=== PATIENT | female | born 1940 ===

== ENCOUNTER 2017-12-01 12:06 | Inpatient (IN) | payer MEDICAID, OTHER ==
--- NOTE | 2017-12-01 12:20 | ED PDOC ---
HPI: SOB/CHF/COPD Time Seen by Provider: 12/01/17 12:18 Chief Complaint (Nursing): Shortness Of Breath Chief Complaint (Provider): SOB History Per: Patient Additional Complaint(s): A 76 year old female, whose past medical history includes Pulmonary Fibrosis, hypertension, diabetes and hypothyroidism, is brought into the emergency department by family complaining of SOB and dry cough since June. 2 Duoneb treatments and 1 Atrovent tx given en route to hospital. Past Medical History Reviewed: Historical Data, Nursing Documentation, Vital Signs Vital Signs: Last Vital Signs Temp 99.3 F 12/01/17 16:00 Pulse 88 12/01/17 16:00 Resp 18 12/01/17 16:00 BP 123/66 12/01/17 16:00 Pulse Ox 100 12/01/17 16:00 - Medical History PMH: Depression, HTN, Hypothyroidism Other PMH: pulmonary fibrosis - Surgical History Surgical History: Cholecystectomy, Coronary Stent - Family History Family History: States: Unknown Family Hx - Living Arrangements Living Arrangements: With Family - Social History Current smoker - smoking cessation education provided: No Alcohol: None Drugs: Denies - Home Medications Home Medications: Ambulatory Orders Medication Instructions Recorded Albuterol HFA [Ventolin HFA 90 2 puff NEB Q6 PRN 02/05/17 mcg/actuation (8 g)] Insulin Glargine, Recombina 60 units SC DAILY 02/05/17 [Lantus] amLODIPine [Norvasc] 5 mg PO DAILY 02/05/17 Levothyroxine [Synthroid] 75 mcg PO DAILY #30 tab 02/06/17 Insulin Glulisine [Apidra] 12 unit SQ DAILY 12/01/17 - Allergies Allergies/Adverse Reactions: Allergies Allergy/AdvReac Type Severity Reaction Status Date / Time Penicillins Allergy SWELLING Verified 02/05/17 13:01 Review of Systems ROS Statement: Except As Marked, All Systems Reviewed And Found Negative Cardiovascular: Positive for: Chest Pain Respiratory: Positive for: Shortness of Breath Physical Exam - Reviewed Nursing Documentation Reviewed: Yes Vital Signs Reviewed: Yes - Physical Exam Appears: Positive for: Well, Non-toxic, No Acute Distress Head Exam: Positive for: ATRAUMATIC, NORMAL INSPECTION, NORMOCEPHALIC Skin: Positive for: Normal Color, Warm, DRY Eye Exam: Positive for: EOMI, Normal appearance, PERRL ENT: Positive for: Normal ENT Inspection Neck: Positive for: Normal, Painless ROM Cardiovascular/Chest: Positive for: Regular Rate, Rhythm Respiratory: Positive for: Decreased Breath Sounds. Negative for: Accessory Muscle Use, Crackles, Rales, Rhonchi Gastrointestinal/Abdominal: Positive for: Normal Exam, Bowel Sounds, Soft Back: Positive for: Normal Inspection Extremity: Positive for: Normal ROM Neurologic/Psych: Positive for: Alert, Oriented - Laboratory Results Result Diagrams: 12/01/17 12:51 12/01/17 12:51 - ECG O2 Sat by Pulse Oximetry: 99 Medical Decision Making Medical Decision Making: Pt placed on pressure welder. Non re-breather mask in place and Pt at 100% IV access established and diagnostics ordered CXR: (+) Poor inspiratory effort, increased hilar markings, as read by PA-C Labs resulted and reviewed with ED MD, Dr. Cardoza, who agreed with admission at this time. Case discussed with hospitalist on-call, Dr. Dodge, who presented to see and evaluate Pt at bedside. arrangements made for admission Disposition - Clinical Impression Clinical Impression: Chr obstructive pulmonary disease w/ acute lower respiratory infxn - Patient ED Disposition Is Patient to be Admitted: Yes - Disposition Disposition Time: 16:24 Condition: STABLE
[2017-12-01 12:58] LABS: BASO # 0.1 K/uL (0.0-0.2); BASO % 1.2 % (0.0-2.0); EOS # 0.2 K/uL (0.0-0.7); EOS % 2.2 % (0.0-4.0); HEMOGLOBIN 12.5 g/dL (12.0-16.0); LYMPH # 2.3 K/uL (1.0-4.3); LYMPH % 22.2 % (20.0-40.0); MEAN CELL VOLUME 92.5 fl (81.0-99.0); MEAN CORPUSCULAR HGB CONC 32.5 g/dL (33.0-37.0); MEAN PLATELET VOLUME 8.8 fl (7.2-11.7); MONO # 0.6 K/uL (0.0-0.8); MONO % 5.4 % (0.0-10.0); NEUT # 7.3 K/uL (1.8-7.0); RBC 4.17 Mil/uL (3.80-5.20); RED CELL DISTRIBUTION WIDTH 14.8 % (11.5-14.5); WHITE BLOOD COUNT 10.5 K/uL (4.8-10.8)
[2017-12-01 13:16] LABS: GFR AFRICAN-AMERICAN > 60; GFR NON-AFRICAN AMERICAN > 60
[2017-12-01 13:17] LABS: INR 1.1 (0.9-1.2)
[2017-12-01 13:26] LABS: SQUAMOUS EPITHIAL 1 /hpf (0-5); URINE BACTERIA MANY (<OCC); URINE BILIRUBIN NEGATIVE (NEGATIVE); URINE BLOOD SMALL (NEGATIVE); URINE CLARITY CLOUDY (Clear); URINE COLOR YELLOW (YELLOW); URINE GLUCOSE (UA) NEG (Normal); URINE LEUKOCYTE ESTERASE LARGE Leu/uL (Negative); URINE NITRATE NEGATIVE (NEGATIVE); URINE PROTEIN NEGATIVE (NEGATIVE); URINE UROBILINOGEN 0.2-1.0 mg/dL (0.2-1.0)
[2017-12-01 13:27] LABS: B-TYPE NATRIURETIC PEPTIDE 272 pg/ml (0-900)
[2017-12-01 13:28] LABS: PARTIAL THROMBOPLASTIN TIME 24.7 Seconds (25.6-37.1)
[2017-12-01 13:32] LABS: ALB/GLOB RATIO 0.8 (1.0-2.1); ALT/SGPT 22 U/L (9-52); AST/SGOT 33 U/L (14-36); BLOOD UREA NITROGEN 18 mg/dl (7-17)
[2017-12-01] MEDS ORDERED: Iodixanol 320 MG/ML 100 ML BOTTLE IV ONE (14:18)
[2017-12-01] MEDS ORDERED: Sodium Chloride 0.9% 50 ML IV ONE (14:18)
--- NOTE | 2017-12-01 14:24 | RAD ---
PROCEDURE: CHEST RADIOGRAPH, 1 VIEW HISTORY: SOB COMPARISON: None available. FINDINGS: LUNGS: Low lung volumes. Prominence of the bilateral interstitial markings with suggestion of fibrotic changes. PLEURA: No pneumothorax or pleural fluid seen. CARDIOVASCULAR: Normal. OSSEOUS STRUCTURES: Degenerative changes. VISUALIZED UPPER ABDOMEN: Normal. OTHER FINDINGS: None. IMPRESSION: Prominence of the bilateral interstitial markings with suggestion of fibrotic changes.
[2017-12-01] MEDS ORDERED: Albuterol-Ipratrop 3 mg / 0.5 (3 ml) UD INH PRN (14:56)
--- NOTE | 2017-12-01 14:57 | CP.PCM.HP ---
History of Present Illness - History of Present Illness History of Present Illness: CC: shortness of breath HPI: 76 year old female, whose past medical history Pulmonary Fibrosis diagnosed in [facility], hypertension, diabetes and hypothyroidism, hx of chemo 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 Patient states she has orthopnea, has some wheezing and coarse breath sounds. Patient received bronchodilators in the ER and felt slightly improved. Patient also lived with her brother who is a heavy smoker for many years, although she has not smoked herself. CT showed bronchiectasis as well as pulmonary fibrosis. We will observe patient for dyspnea, and treat with steroids and bronchodilators. ROS: Per HPI, all other systems reviewed and neg PMH: denies PSH: denies FH: denies SH: denies tobacco, ETOH, IVDU NKDA Vitals Reviewed GEN: WDWN, ALERT, COOPERATIVE HEENT: NCAT, PERRL, EOMI HEART: RRR, +S1S2, NO MRG LUNG: diminished breath sounds bilaterally ABD: SOFT, NT, ND, NO HSM, NO MASSES EXT: NORMAL PEDAL PULSES, GOOD CAPILLARY REFILL NEURO: AAOX3, STRENGTH EQUAL BILATERAL UPPER AND LOWER EXTREMITIES SKIN: WARM, DRY PSYCH: NORMAL MOOD, NORMAL AFFECT LABS Most Recent Lab Values WBC 10.5 K/uL (4.8-10.8) 12/01/17 12:51 RBC 4.17 Mil/uL (3.80-5.20) 12/01/17 12:51 Hgb 12.5 g/dL (12.0-16.0) 12/01/17 12:51 Hct 38.6 % (34.0-47.0) 12/01/17 12:51 MCV 92.5 fl (81.0-99.0) 12/01/17 12:51 MCH 30.0 pg (27.0-31.0) 12/01/17 12:51 MCHC 32.5 g/dL (33.0-37.0) L 12/01/17 12:51 RDW 14.8 % (11.5-14.5) H 12/01/17 12:51 Plt Count 252 K/uL (130-400) 12/01/17 12:51 MPV 8.8 fl (7.2-11.7) 12/01/17 12:51 Neut % (Auto) 69.0 % (50.0-75.0) 12/01/17 12:51 Lymph % (Auto) 22.2 % (20.0-40.0) 12/01/17 12:51 [place] % (Auto) 5.4 % (0.0-10.0) 12/01/17 12:51 Eos % (Auto) 2.2 % (0.0-4.0) 12/01/17 12:51 Baso % (Auto) 1.2 % (0.0-2.0) 12/01/17 12:51 Neut # 7.3 K/uL (1.8-7.0) H 12/01/17 12:51 Lymph # 2.3 K/uL (1.0-4.3) 12/01/17 12:51 [place] # 0.6 K/uL (0.0-0.8) 12/01/17 12:51 Eos # 0.2 K/uL (0.0-0.7) 12/01/17 12:51 Baso # 0.1 K/uL (0.0-0.2) 12/01/17 12:51 PT 12.0 Seconds (9.8-13.1) 12/01/17 12:51 INR 1.1 (0.9-1.2) 12/01/17 12:51 APTT 24.7 Seconds (25.6-37.1) L 12/01/17 12:51 Sodium 140 mmol/l (132-148) 12/01/17 12:51 Potassium 4.8 MMOL/L (3.6-5.0) 12/01/17 12:51 Chloride 99 mmol/L (98-107) 12/01/17 12:51 Carbon Dioxide 27 mmol/L (22-30) 12/01/17 12:51 Anion Gap 19 (10-20) 12/01/17 12:51 BUN 18 mg/dl (7-17) H 12/01/17 12:51 Creatinine 0.6 mg/dl (0.7-1.2) L 12/01/17 12:51 Est GFR ( Amer) > 60 12/01/17 12:51 Est GFR (Non-Af Amer) > 60 12/01/17 12:51 POC Glucose (mg/dL) 257 mg/dL (65-110) H 12/01/17 15:01 Random Glucose 269 mg/dL (65-105) H 12/01/17 12:51 Calcium 10.0 mg/dL (8.4-10.2) 12/01/17 12:51 Total Bilirubin 0.8 mg/dl (0.2-1.3) 12/01/17 12:51 AST 33 U/L (14-36) 12/01/17 12:51 ALT 22 U/L (9-52) 12/01/17 12:51 Alkaline Phosphatase 114 U/L (38-126) 12/01/17 12:51 Troponin I < 0.0120 ng/mL (0.00-0.120) 12/01/17 12:51 NT-Pro-B Natriuret Pep 272 pg/ml (0-900) 12/01/17 12:51 Total Protein 9.3 G/DL (6.3-8.2) H 12/01/17 12:51 Albumin 4.0 g/dL (3.5-5.0) 12/01/17 12:51 Globulin 5.3 gm/dL (2.2-3.9) H 12/01/17 12:51 Albumin/Globulin Ratio 0.8 (1.0-2.1) L 12/01/17 12:51 Urine Color Yellow (YELLOW) 12/01/17 13:15 Urine Clarity Cloudy (Clear) 12/01/17 13:15 Urine pH 5.0 (5.0-8.0) 12/01/17 13:15 Ur Specific [place] 1.011 (1.003-1.030) 12/01/17 13:15 Urine Protein Negative mg/dL (NEGATIVE) 12/01/17 13:15 Urine Glucose (UA) Neg mg/dL (Normal) 12/01/17 13:15 Urine Ketones Negative mg/dL (NEGATIVE) 12/01/17 13:15 Urine Blood Small (NEGATIVE) 12/01/17 13:15 Urine Nitrate Negative (NEGATIVE) 12/01/17 13:15 Urine Bilirubin Negative (NEGATIVE) 12/01/17 13:15 Urine Urobilinogen 0.2-1.0 mg/dL (0.2-1.0) 12/01/17 13:15 Ur Leukocyte Esterase Large Willian/uL (Negative) 12/01/17 13:15 Urine RBC (Auto) 3 /hpf (0-3) 12/01/17 13:15 Urine Microscopic WBC 82 /hpf (0-5) H 12/01/17 13:15 Ur Squamous Epith Cells 1 /hpf (0-5) 12/01/17 13:15 Urine Bacteria Many (<OCC) H 12/01/17 13:[address] CHEST: bronchiectasis and pulmonary fibrosis ASSESSMENT AND PLAN 76 year old female, whose past medical history Pulmonary Fibrosis diagnosed in [facility], hypertension, diabetes and hypothyroidism, hx of chemo 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 Patient states she has orthopnea, has some wheezing and coarse breath sounds. Patient received bronchodilators in the ER and felt slightly improved. Patient also lived with her brother who is a heavy smoker for many years, although she has not smoked herself. CT showed bronchiectasis as well as pulmonary fibrosis. We will observe patient for dyspnea, and treat with steroids and bronchodilators. Pulmonary Fibrosis, Bronchiectasis Dypsnea On 2L NC and saturating well if patient desaturates overnight will place on ventimask which she tolerated well in ER Albuterol/Ipratropium [Duoneb 3 mg/0.5 mg (3 ml) UD] 3 ml INH RQ2 PRN Albuterol/Ipratropium [Duoneb 3 mg/0.5 mg (3 ml) UD] 3 ml INH RQID methylPREDNISolone [SOLU-Medrol] 60 mg IVP Q8H Hypothyroid Levothyroxine [Synthroid] 75 mcg PO DAILY@0630 DM Insulin Detemir [Levemir] 60 units SC DAILY ACCUCHECKS ISS HTN amLODIPine [Norvasc] 5 mg PO DAILY Present on Admission - Present on Admission Any Indicators Present on Admission: No Past Patient History - Past Social History Smoking Status: Never Smoked - CARDIAC Hx Hypertension: Yes - PULMONARY Other/Comment: cystic fibrosis - NEUROLOGICAL Hx Dizziness: Yes (Vertigo) - ENDOCRINE/METABOLIC Hx Hypothyroidism: Yes - MUSCULOSKELETAL/RHEUMATOLOGICAL Hx Falls: No - GASTROINTESTINAL Hx Gastrointestinal Disorders: Yes - PSYCHIATRIC Hx Depression: Yes - SURGICAL HISTORY Hx Cholecystectomy: Yes Hx Coronary Stent: Yes - ANESTHESIA Hx Anesthesia: Yes Hx Anesthesia Reactions: No Meds Allergies/Adverse Reactions: Allergies Allergy/AdvReac Type Severity Reaction Status Date / Time Penicillins Allergy SWELLING Verified 02/05/17 13:01 Results - Vital Signs Recent Vital Signs: Last Vital Signs Temp 98.8 F 12/01/17 12:09 Pulse 103 H 12/01/17 12:09 Resp 18 12/01/17 12:09 BP 134/72 12/01/17 12:09 Pulse Ox 99 12/01/17 12:35 - Labs Result Diagrams: 12/01/17 12:51 12/01/17 12:51 Labs: Laboratory Results - last 24 hr 12/01/17 12/01/17 12/01/17 12:51 12:51 12:51 WBC 10.5 RBC 4.17 Hgb 12.5 Hct 38.6 MCV 92.5 MCH 30.0 MCHC 32.5 L RDW 14.8 H Plt Count 252 MPV 8.8 Neut % (Auto) 69.0 Lymph % (Auto) 22.2 [place] % (Auto) 5.4 Eos % (Auto) 2.2 Baso % (Auto) 1.2 Neut # 7.3 H Lymph # 2.3 [place] # 0.6 Eos # 0.2 Baso # 0.1 PT 12.0 INR 1.1 APTT 24.7 L Sodium 140 Potassium 4.8 Chloride 99 Carbon Dioxide 27 Anion Gap 19 BUN 18 H Creatinine 0.6 L Est GFR ( Amer) > 60 Est GFR (Non-Af Amer) > 60 Random Glucose 269 H Calcium 10.0 Total Bilirubin 0.8 AST 33 ALT 22 Alkaline Phosphatase 114 Troponin I < 0.0120 NT-Pro-B Natriuret Pep 272 Total Protein 9.3 H Albumin 4.0 Globulin 5.3 H Albumin/Globulin Ratio 0.8 L Urine Color Urine Clarity Urine pH Ur Specific [place] Urine Protein Urine Glucose (UA) Urine Ketones Urine Blood Urine Nitrate Urine Bilirubin Urine Urobilinogen Ur Leukocyte Esterase Urine RBC (Auto) Urine Microscopic WBC Ur Squamous Epith Cells Urine Bacteria 12/01/17 13:15 WBC RBC Hgb Hct MCV MCH MCHC RDW Plt Count MPV Neut % (Auto) Lymph % (Auto) [place] % (Auto) Eos % (Auto) Baso % (Auto) Neut # Lymph # [place] # Eos # Baso # PT INR APTT Sodium Potassium Chloride Carbon Dioxide Anion Gap BUN Creatinine Est GFR ( Amer) Est GFR (Non-Af Amer) Random Glucose Calcium Total Bilirubin AST ALT Alkaline Phosphatase Troponin I NT-Pro-B Natriuret Pep Total Protein Albumin Globulin Albumin/Globulin Ratio Urine Color Yellow Urine Clarity Cloudy Urine pH 5.0 Ur Specific [place] 1.011 Urine Protein Negative Urine Glucose (UA) Neg Urine Ketones Negative Urine Blood Small Urine Nitrate Negative Urine Bilirubin Negative Urine Urobilinogen 0.2-1.0 Ur Leukocyte Esterase Large Urine RBC (Auto) 3 Urine Microscopic WBC 82 H Ur Squamous Epith Cells 1 Urine Bacteria Many H
[2017-12-01] MEDS: Albuterol-Ipratrop 3 mg / 0.5 (3 ml) UD INH SCH ×2 (16:00→20:18)
--- NOTE | 2017-12-01 16:46 | CT ---
PROCEDURE: CT Chest with contrast (Pulmonary Angiogram) HISTORY: abnormal cxr, SOB, CP COMPARISON: None available. TECHNIQUE: Axial computed tomography images were obtained of the chest in the pulmonary arterial phase of enhancement. Coronal and sagittal reformatted images were created and reviewed. Intravenous contrast dose: 90 mL Visipaque 320 Radiation dose: Total exam DLP = 341.8 mGy-cm. This CT exam was performed using one or more of the following dose reduction techniques: Automated exposure control, adjustment of the mA and/or kV according to patient size, and/or use of iterative reconstruction technique. FINDINGS: PULMONARY ARTERIES: Unremarkable. No pulmonary embolism. AORTA: No acute findings. No thoracic aortic aneurysm. LUNGS: Low lung volumes. Diffuse bronchiectasis and fibrotic changes, right lung worse than left. Limited evaluation, but no gross nodule, mass or pulmonary consolidation. PLEURAL SPACES: Unremarkable. No effusion or pneumothorax. HEART: Cardiomegaly. No significant pericardial effusion. LYMPH NODES: Prominent right hilar lymph nodes. No lymphadenopathy. BONES, CHEST WALL: Unremarkable. No fracture or destructive lesion OTHER FINDINGS: Unremarkable. IMPRESSION: Unremarkable CT pulmonary angiogram. No pulmonary embolus. Low lung volumes. Diffuse bronchiectasis and fibrotic changes, right lung worse than left.
[2017-12-01 17:40] VITALS: BMI 21.8
[2017-12-01] MEDS ORDERED: Pneumococcal 23-Valent Vaccine IM ONE (20:00)
[2017-12-01] MEDS ORDERED: Influenza Vaccine 18yr & older 0.5 ML/45 MCG SYR IM ONE (20:00)
[2017-12-01] MEDS: Nasal Spray(Ocean spray) NAS PRN (20:41)
[2017-12-01] MEDS: Insulin Lispro (humaLOG) 100 Units/ml Inj SC SCH (22:27)
[2017-12-02] MEDS: guaiFENesin 200 mg/10 ml Syrup UD PO PRN ×3 (05:03→23:13)
[2017-12-02 05:33] LABS: HEMOGLOBIN 12.2 g/dL (12.0-16.0); MEAN CELL VOLUME 92.2 fl (81.0-99.0); MEAN CORPUSCULAR HEMOGLOBIN 30.3 pg (27.0-31.0); MEAN CORPUSCULAR HGB CONC 32.9 g/dL (33.0-37.0); RBC 4.03 Mil/uL (3.80-5.20); RED CELL DISTRIBUTION WIDTH 14.6 % (11.5-14.5); WHITE BLOOD COUNT 8.9 K/uL (4.8-10.8)
[2017-12-02 06:01] LABS: BLOOD UREA NITROGEN 20 mg/dl (7-17); CALCIUM 9.7 mg/dL (8.4-10.2); GFR AFRICAN-AMERICAN > 60; GFR NON-AFRICAN AMERICAN > 60
[2017-12-02] MEDS: Levothyroxine 75 MCG TAB PO SCH (06:04)
[2017-12-02] MEDS: Insulin Lispro (humaLOG) 100 Units/ml Inj SC SCH ×4 (06:44→21:30)
[2017-12-02] MEDS: Albuterol-Ipratrop 3 mg / 0.5 (3 ml) UD INH SCH ×4 (07:35→19:04)
[2017-12-02] MEDS: Insulin Detemir 100 Units/ml Inj SC SCH (08:15)
[2017-12-02] MEDS: Enoxaparin 40 mg Syringe SC SCH (08:16)
[2017-12-02] MEDS: Nasal Spray(Ocean spray) NAS PRN (08:17)
[2017-12-02] MEDS ORDERED: Enoxaparin 40 mg Syringe SC SCH (09:00)
--- NOTE | 2017-12-02 11:03 | CP.PCM.PN ---
Subjective - Date & Time of Evaluation Date of Evaluation: 12/02/17 Time of Evaluation: 11:03 - Subjective Subjective: pt continues to be dyspneic with increased work of breathing at rest, saturating appx 88% on 2L NC. will need to set up home O2, obtaining ECHO today. HD stable, NAD. no cp, calf tenderness Objective - Vital Signs/Intake and Output Vital Signs (last 24 hours): Temp Pulse Resp BP Pulse Ox 98.1 F 84 18 117/68 96 12/02/17 07:56 12/02/17 09:00 12/02/17 07:56 12/02/17 08:17 12/02/17 07:56 Intake and Output: 12/02/17 12/02/17 06:59 18:59 Intake Total 1110 Balance 1110 - Medications Medications: Current Medications Acetaminophen (Tylenol 325mg Tab) 650 mg PO Q6 PRN PRN Reason: Pain, moderate (4-7) Last Admin: 12/02/17 08:53 Dose: 650 mg Albuterol/Ipratropium (Duoneb 3 Mg/0.5 Mg (3 Ml) Ud) 3 ml INH RQID ARIANA Last Admin: 12/02/17 07:35 Dose: 3 ml Albuterol/Ipratropium (Duoneb 3 Mg/0.5 Mg (3 Ml) Ud) 3 ml INH RQ2 PRN PRN Reason: Shortness of Breath Amlodipine Besylate (Norvasc) 5 mg PO DAILY [facility] Last Admin: 12/02/17 08:17 Dose: 5 mg Enoxaparin Sodium (Lovenox) 40 mg SC DAILY ARIANA PRN Reason: Protocol Last Admin: 12/02/17 08:16 Dose: 40 mg Guaifenesin (Robitussin) 200 mg PO Q6 PRN PRN Reason: Cough Last Admin: 12/02/17 05:03 Dose: 200 mg Ceftriaxone Sodium 1,000 mg/ (PED IV SYRINGE) 0 mls @ 100 mls/hr IVPB DAILY ARIANA PRN Reason: Protocol Insulin Detemir (Levemir) 60 units SC DAILY [facility] Last Admin: 12/02/17 08:15 Dose: 60 units Insulin Human Lispro (Humalog) 0 units SC ACHS ARIANA PRN Reason: Protocol Last Admin: 12/02/17 06:44 Dose: 4 units Levothyroxine Sodium (Synthroid) 75 mcg PO DAILY@0630 [facility] Last Admin: 12/02/17 06:04 Dose: 75 mcg Methylprednisolone (Solu-Medrol) 60 mg IVP Q8H [facility] Last Admin: 12/02/17 04:54 Dose: 60 mg Sodium Chloride ([place] Nasal [place]) 1 sprays DILLON Q4 PRN PRN Reason: Nasal congestion Last Admin: 12/02/17 08:17 Dose: 1 spr - Labs Labs: 12/02/17 04:30 12/02/17 04:30 PT 12.0 Seconds (9.8-13.1) 12/01/17 12:51 INR 1.1 (0.9-1.2) 12/01/17 12:51 APTT 24.7 Seconds (25.6-37.1) L 12/01/17 12:51 - Constitutional Appears: Non-toxic, No Acute Distress - Head Exam Head Exam: ATRAUMATIC, NORMOCEPHALIC - Eye Exam Eye Exam: EOMI, Normal appearance, PERRL - ENT Exam ENT Exam: Mucous Membranes Moist, Normal Oropharynx - Neck Exam Neck Exam: Full ROM, Normal Inspection - Respiratory Exam Respiratory Exam: Decreased Breath Sounds, Clear to Ausculation Bilateral Additional comments: mild increased work of breathing - Cardiovascular Exam Cardiovascular Exam: RRR, +S1, +S2 - GI/Abdominal Exam GI & Abdominal Exam: Soft, Normal Bowel Sounds. absent: Tenderness, Mass, Organomegaly - Extremities Exam Extremities Exam: Full ROM, Normal Capillary Refill - Back Exam Back Exam: absent: CVA tenderness (L), CVA tenderness (R) - Neurological Exam Neurological Exam: Alert, Awake - Psychiatric Exam Psychiatric exam: Normal Affect, Normal Mood - Skin Skin Exam: Dry, Warm Assessment and Plan - Assessment and Plan (Free Text) Assessment: 76 year old female, whose past medical history Pulmonary Fibrosis diagnosed in [facility], hypertension, diabetes and hypothyroidism, hx of chemo 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 Patient states she has orthopnea, has some wheezing and coarse breath sounds. Patient received bronchodilators in the ER and felt slightly improved. Patient also lived with her brother who is a heavy smoker for many years, although she has not smoked herself. CT showed bronchiectasis as well as pulmonary fibrosis. We will observe patient for dyspnea, and treat with steroids and bronchodilators. Pulmonary Fibrosis, Bronchiectasis Dypsnea On 2L NC and saturating 88% on 2 L NC, will require home O2. echo for today to evaluate R heart function PT to evaluate patient on ambulation Albuterol/Ipratropium [Duoneb 3 mg/0.5 mg (3 ml) UD] 3 ml INH RQ2 PRN Albuterol/Ipratropium [Duoneb 3 mg/0.5 mg (3 ml) UD] 3 ml INH RQID discontinue steroids, no wheezing, no evidence of benefit per guidelines We will set up home O2 for patient, as she will require 24H home O2. Per discussion with [facility] Monthly cost at this time would be over $5000. Will discuss with Case Management tomorrow regarding other options. Hypothyroid Levothyroxine [Synthroid] 75 mcg PO DAILY@0630 DM Insulin Detemir [Levemir] 60 units SC DAILY ACCUCHECKS ISS HTN amLODIPine [Norvasc] 5 mg PO DAILY
--- NOTE | 2017-12-02 16:12 | CARD ---
APPROVED REPORT EXAM: Two-dimensional and M-mode echocardiogram with Doppler and color Doppler. Other Information Quality : FairRhythm : NSR INDICATION Dyspnea 2D DIMENSIONS LVEF (%)55.0 (>50%) Mitral Valve E/A ratio0.0 TDI E/Lateral E'0.0E/Medial E'0.0 LEFT VENTRICLE The left ventricle is normal size. There is normal left ventricular wall thickness. The left ventricular function is normal. The left ventricular ejection fraction is within the normal range. There is normal LV segmental wall motion. Transmitral Doppler flow pattern is Grade I-abnormal relaxation pattern. RIGHT VENTRICLE The right ventricle is normal size. There is normal right ventricular wall thickness. The right ventricular systolic function is normal. ATRIA The left atrium size is normal. The right atrium size is normal. AORTIC VALVE The aortic valve is mildly sclerotic. No aortic regurgitation is present. There is no aortic valvular stenosis. MITRAL VALVE The mitral valve is mildly thickened. There is no mitral valve stenosis. There is no mitral valve regurgitation noted. TRICUSPID VALVE The tricuspid valve is normal in structure. There is no tricuspid valve regurgitation noted. PULMONIC VALVE The pulmonary valve is normal in structure. There is no pulmonic valvular regurgitation. GREAT VESSELS The aortic root displays moderate sclerocalcific changes of the aortic root. The IVC was not visualized. PERICARDIAL EFFUSION The pericardium appears normal. <Conclusion> The left ventricle is normal size. There is normal left ventricular wall thickness. The left ventricular function is normal. The left ventricular ejection fraction is within the normal range. There is normal LV segmental wall motion. Transmitral Doppler flow pattern is Grade I-abnormal relaxation pattern.
[2017-12-02] MEDS ORDERED: Insulin Lispro (humaLOG) 100 Units/ml Inj SC STA ×2 (18:06→19:55)
[2017-12-03] MEDS: Levothyroxine 75 MCG TAB PO SCH (05:49)
[2017-12-03] MEDS: guaiFENesin 200 mg/10 ml Syrup UD PO PRN (05:49)
[2017-12-03] MEDS: Insulin Lispro (humaLOG) 100 Units/ml Inj SC SCH ×4 (07:00→22:34)
[2017-12-03] MEDS: Albuterol-Ipratrop 3 mg / 0.5 (3 ml) UD INH SCH ×4 (07:41→19:42)
[2017-12-03] MEDS: Enoxaparin 40 mg Syringe SC SCH (08:30)
[2017-12-03] MEDS: Insulin Detemir 100 Units/ml Inj SC SCH (08:54)
--- NOTE | 2017-12-03 11:17 | CP.PCM.PN ---
Subjective - Date & Time of Evaluation Date of Evaluation: 12/03/17 Time of Evaluation: 11:10 - Subjective Subjective: pt states she feels improved but continues to require O2 at baseline, currently saturating 91% with ambulation on 5L NC. no complaints at this time NO CP, CALFTENDERNESS HDstable, NAD Objective - Vital Signs/Intake and Output Vital Signs (last 24 hours): Temp Pulse Resp BP Pulse Ox 97.9 F 64 18 118/68 100 12/03/17 08:00 12/03/17 08:30 12/03/17 08:00 12/03/17 08:30 12/03/17 08:00 - Medications Medications: Current Medications Acetaminophen (Tylenol 325mg Tab) 650 mg PO Q6 PRN PRN Reason: Pain, moderate (4-7) Last Admin: 12/03/17 08:54 Dose: 650 mg Albuterol/Ipratropium (Duoneb 3 Mg/0.5 Mg (3 Ml) Ud) 3 ml INH RQID [facility] Last Admin: 12/03/17 07:41 Dose: 3 ml Albuterol/Ipratropium (Duoneb 3 Mg/0.5 Mg (3 Ml) Ud) 3 ml INH RQ2 PRN PRN Reason: Shortness of Breath Amlodipine Besylate (Norvasc) 5 mg PO DAILY [facility] Last Admin: 12/03/17 08:30 Dose: 5 mg Enoxaparin Sodium (Lovenox) 40 mg SC DAILY [facility] PRN Reason: Protocol Last Admin: 12/03/17 08:30 Dose: 40 mg Guaifenesin (Robitussin) 200 mg PO Q6 PRN PRN Reason: Cough Last Admin: 12/03/17 05:49 Dose: 200 mg Ceftriaxone Sodium 1 gm/ (Sodium Chloride) 100 mls @ 100 mls/hr IVPB DAILY [facility] PRN Reason: Protocol Last Admin: 12/03/17 09:39 Dose: 100 mls/hr Insulin Detemir (Levemir) 60 units SC DAILY [facility] Last Admin: 12/03/17 08:54 Dose: 60 units Insulin Human Lispro (Humalog) 0 units SC ACHS [facility] PRN Reason: Protocol Last Admin: 12/03/17 07:00 Dose: 2 units Levothyroxine Sodium (Synthroid) 75 mcg PO DAILY@0630 [facility] Last Admin: 12/03/17 05:49 Dose: 75 mcg Sodium Chloride ([place] Nasal [place]) 1 sprays [facility] Q4 PRN PRN Reason: Nasal congestion Last Admin: 12/02/17 08:17 Dose: 1 spr - Labs Labs: 12/02/17 04:30 12/02/17 04:30 PT 12.0 Seconds (9.8-13.1) 12/01/17 12:51 INR 1.1 (0.9-1.2) 12/01/17 12:51 APTT 24.7 Seconds (25.6-37.1) L 12/01/17 12:51 - Constitutional Appears: Non-toxic, No Acute Distress - Head Exam Head Exam: ATRAUMATIC, NORMOCEPHALIC - Eye Exam Eye Exam: EOMI, Normal appearance, PERRL - ENT Exam ENT Exam: Mucous Membranes Moist, Normal Oropharynx - Neck Exam Neck Exam: Full ROM, Normal Inspection - Respiratory Exam Respiratory Exam: Decreased Breath Sounds, Clear to Ausculation Bilateral, NORMAL BREATHING PATTERN. absent: Wheezes - Cardiovascular Exam Cardiovascular Exam: RRR, +S1, +S2 - GI/Abdominal Exam GI & Abdominal Exam: Soft, Normal Bowel Sounds. absent: Tenderness, Mass, Organomegaly - Extremities Exam Extremities Exam: Normal Capillary Refill. 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 Patient states she has orthopnea, has some wheezing and coarse breath sounds. Patient received bronchodilators in the ER and felt slightly improved. Patient also lived with her brother who is a heavy smoker for many years, although she has not smoked herself. CT showed bronchiectasis as well as pulmonary fibrosis. We will observe patient for dyspnea, and treat with steroids and bronchodilators. Pulmonary Fibrosis, Bronchiectasis Dypsnea On 2L NC and saturating 88% on 2 L NC, will require home O2. echo for today to evaluate R heart function PT to evaluate patient on ambulation Albuterol/Ipratropium [Duoneb 3 mg/0.5 mg (3 ml) UD] 3 ml INH RQ2 PRN Albuterol/Ipratropium [Duoneb 3 mg/0.5 mg (3 ml) UD] 3 ml INH RQID discontinue steroids, no wheezing, no evidence of benefit in pulmonary fibrosis per guidelines We will set up home O2 for patient, as she will require 24H home O2. Discussed further with patient. She admits she does have home O2 which her daughter acquired for her, but it is unclear from where. Appreciate Case Management. Hypothyroid Levothyroxine [Synthroid] 75 mcg PO DAILY@0630 DM Insulin Detemir [Levemir] 60 units SC DAILY [facility] HTN amLODIPine [Norvasc] 5 mg PO DAILY
[2017-12-04] MEDS: Levothyroxine 75 MCG TAB PO SCH (05:53)
[2017-12-04] MEDS: Insulin Lispro (humaLOG) 100 Units/ml Inj SC SCH ×4 (07:22→21:46)
[2017-12-04] MEDS: Albuterol-Ipratrop 3 mg / 0.5 (3 ml) UD INH SCH ×4 (07:29→19:58)
--- NOTE | 2017-12-04 07:55 | CARD ---
APPROVED REPORT EKG Measurement Heart [id number] <Conclusion> Sinus tachycardia Inferior infarct, age undetermined Poor R wave progression in the chest leads Abnormal ECG
[2017-12-04] MEDS: Enoxaparin 40 mg Syringe SC SCH (08:58)
[2017-12-04] MEDS: Insulin Detemir 100 Units/ml Inj SC SCH (08:58)
[2017-12-04] MEDS: guaiFENesin 200 mg/10 ml Syrup UD PO PRN (09:05)
[2017-12-04] MEDS ORDERED: Sodium Chloride 3% for Inhalation 4 ML VIAL.NEB IH PRN (10:42)
[2017-12-04] MEDS ORDERED: methylPREDNISolone 80 MG in Sodium Chloride 0.9% 50 ML IVPB SCH (10:45)
--- NOTE | 2017-12-04 12:25 | CP.PCM.PN ---
Subjective - Date & Time of Evaluation Date of Evaluation: 12/04/17 Time of Evaluation: 10:45 - Subjective Subjective: No fever still with SOB + cough, dry some chest discomfort no abd pain Objective - Vital Signs/Intake and Output Vital Signs (last 24 hours): Temp Pulse Resp BP Pulse Ox 97.8 F 83 18 112/74 100 12/04/17 09:00 12/04/17 09:00 12/04/17 09:00 12/04/17 09:00 12/04/17 09:00 - Medications Medications: Current Medications Acetaminophen (Tylenol 325mg Tab) 650 mg PO Q6 PRN PRN Reason: Pain, moderate (4-7) Last Admin: 12/04/17 09:29 Dose: 650 mg Albuterol/Ipratropium (Duoneb 3 Mg/0.5 Mg (3 Ml) Ud) 3 ml INH RQID [facility] Last Admin: 12/04/17 11:26 Dose: 3 ml Albuterol/Ipratropium (Duoneb 3 Mg/0.5 Mg (3 Ml) Ud) 3 ml INH RQ2 PRN PRN Reason: Shortness of Breath Amlodipine Besylate (Norvasc) 5 mg PO DAILY [facility] Last Admin: 12/04/17 08:59 Dose: 5 mg Enoxaparin Sodium (Lovenox) 40 mg SC DAILY [facility] PRN Reason: Protocol Last Admin: 12/04/17 08:58 Dose: 40 mg Guaifenesin (Robitussin) 200 mg PO Q6 PRN PRN Reason: Cough Last Admin: 12/04/17 09:05 Dose: 200 mg Ceftriaxone Sodium 1 gm/ (Sodium Chloride) 100 mls @ 100 mls/hr IVPB DAILY [facility] PRN Reason: Protocol Last Admin: 12/04/17 09:30 Dose: 100 mls/hr Insulin Detemir (Levemir) 60 units SC DAILY [facility] Last Admin: 12/04/17 08:58 Dose: 60 units Insulin Human Lispro (Humalog) 0 units SC ACHS [facility] PRN Reason: Protocol Last Admin: 12/04/17 07:22 Dose: Not Given Levothyroxine Sodium (Synthroid) 75 mcg PO DAILY@0630 [facility] Last Admin: 12/04/17 05:53 Dose: 75 mcg Methylprednisolone (Solu-Medrol) 80 mg IV Q8H [facility] Sodium Chloride ([place] Nasal [place]) 1 sprays DILLON Q4 PRN PRN Reason: Nasal congestion Last Admin: 12/02/17 08:17 Dose: 1 spr - Labs Labs: 12/02/17 04:30 12/02/17 04:30 PT 12.0 Seconds (9.8-13.1) 12/01/17 12:51 INR 1.1 (0.9-1.2) 12/01/17 12:51 APTT 24.7 Seconds (25.6-37.1) L 12/01/17 12:51 - Constitutional Appears: Non-toxic, Chronically Ill - Head Exam Head Exam: NORMAL INSPECTION, NORMOCEPHALIC - Eye Exam Eye Exam: EOMI, Normal appearance Pupil Exam: NORMAL ACCOMODATION - ENT Exam ENT Exam: Mucous Membranes Dry, Normal External Ear Exam - Neck Exam Neck Exam: Full ROM. absent: Meningismus - Respiratory Exam Respiratory Exam: Decreased Breath Sounds, Rales, Rhonchi. absent: Wheezes - Cardiovascular Exam Cardiovascular Exam: REGULAR RHYTHM, +S1, +S2 - GI/Abdominal Exam GI & Abdominal Exam: Soft. absent: Tenderness - Extremities Exam Extremities Exam: Full ROM, Normal Capillary Refill. absent: Calf Tenderness, Pedal Edema - Back Exam Back Exam: Full ROM. absent: CVA tenderness (L), CVA tenderness (R) - Neurological Exam Neurological Exam: Alert, Awake, CN II-XII Intact, Oriented x3 Neuro motor strength exam: Left Upper Extremity: 4, Right Upper Extremity: 4, Left Lower Extremity: 4, Right Lower Extremity: 4 - Psychiatric Exam Psychiatric exam: Flat Affect, Normal Mood - Skin Skin Exam: Dry, Normal Color, Warm Assessment and Plan - Assessment and Plan (Free Text) Assessment: 76 year old female, with past medical history of Pulmonary Fibrosis diagnosed in [facility], hypertension, diabetes and hypothyroidism, hx of chemo 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 Patient states she has orthopnea, has some wheezing and coarse breath sounds. Patient received bronchodilators in the ER and felt slightly improved. Patient also lives with her brother who is a heavy smoker for many years, although she has not smoked herself. CT showed bronchiectasis as well as pulmonary fibrosis. 1. Acute on Chronic respiratory failure with hypoxia sec to Pulmonary Fibrosis with Bronchiectasis - cont Oxygen at 4 liters NC - pt will need Home Oxygen - Pulm consult- discussed with Dr Morales- rec starting IV Steroids -cont Duonebs RTC - CT of chest : diffused Bronchiectasis and fibrotic changes - ECHO : normal - poor prognosis 2. UTI Kelbsiella sensitive to OIV Ceftriaxone 3. Hypothyroid cont Levothyroxine [Synthroid] 75 mcg PO DAILY@0630 4. DM type II -Insulin Detemir [Levemir] 60 units SC DAILY -ACCUCHECKS with coverage 5. HTN cont AmLODIPine [Norvasc] 5 mg PO DAILY 6. DVT proph - Lovenox
--- NOTE | 2017-12-04 12:26 | CON ---
DATE: HISTORY OF PRESENT ILLNESS: Ms. Erickson is a 77-year-old female who was referred for pulmonary evaluation by the hospitalist. She was admitted with shortness of breath, exercise intolerance and chest tightness for the past 2 days prior to presentation. She indicated that she has not been able to ambulate at home and has not been able to speak in full sentences. She was seen in the emergency room, given aerosolized bronchodilators and felt slightly better. She has a past medical history of lymphoma while she was still in [place]. She was treated with chemotherapy, but she is not sure about radiation and she was diagnosed to have pulmonary fibrosis. She presently lives with a granddaughter. She denies smoking, but indicates that she was exposed to secondhand smoke by the brother who was a heavy smoker. FAMILY HISTORY: Unremarkable. SOCIAL HISTORY: She does not drink or smoke. REVIEW OF SYSTEMS: Essentially unremarkable for shortness of breath and exercise intolerance. She presently has home oxygen. PHYSICAL EXAMINATION: GENERAL: The patient is frail looking, alert, oriented, but forgetful. VITAL SIGNS: Blood pressure 112/74 with a pulse of 83, respiratory rate is 18 to 20 per minute, she is afebrile, O2 sat is 100% on nasal cannula oxygen 3 L. SKIN: Shows fair turgor. HEENT: Pupils equal and reactive to light and accommodation. Mouth shows fair hygiene. NECK: JVP flat. LUNGS: Poor aeration with Velcro rales bilaterally. Dullness at both bases. HEART: S1 and S2. BREASTS: Normal. ABDOMEN: Soft, nontender. No organomegaly. EXTREMITIES: Show clubbing of fingers with arthritis changes. No cyanosis. CENTRAL NERVOUS SYSTEM: Grossly intact. LABORATORY DATA: Remarkable for chest x-ray that is compatible with bilateral interstitial marking suggestive of fibrotic changes. The echocardiogram: Normal left ventricular size. Normal wall thickness. Ejection fraction within normal range. No wall motion abnormality. CT scan of the chest: No evidence of pulmonary embolism. Diffuse bronchiectasis and fibrotic changes, right worse than left. Sputum studies are pending. WBC of 10.5, hemoglobin 12.5, platelet count of 252,000. Sodium 140, potassium 4.8, BUN 18, creatinine 0.6, troponin less than 0.012. ProBNP 272. IMPRESSION: The patient's clinical picture of shortness of breath and exercise intolerance is more compatible with interstitial lung disease (pulmonary fibrosis). This could have been from lymphoma or lymphoma therapy, but idiopathic pulmonary fibrosis also could exhibit both symptoms. The patient also has a history of exposure to secondhand smoke via the brother and history of hypothyroidism, hypertension and diabetes. PLAN: The plan is to obtain sputum cultures to rule out superimposed pulmonary infection in a patient with pulmonary fibrosis. Continue aerosolized bronchodilators and oxygen. I would obtain sputum for Gram stain and cultures. Further therapy will depend on findings. Prognosis is extremely guarded. Demaroc Morales MD MTDD
[2017-12-04 12:36] LABS: ABG ALLEN TEST YES; ARTERIAL BLOOD GAS HCO3 27.7 mmol/L (21-28); ARTERIAL BLOOD GAS HEMOGLOBIN 13.5 g/dL (11.7-17.4); ARTERIAL BLOOD GAS O2 CAPACITY 18.3 mL/dL (16-24); ARTERIAL BLOOD GAS O2 CONTENT 17.9 ML/dL (15-23); ARTERIAL BLOOD GAS PCO2 39 mm/Hg (35-45); ARTERIAL BLOOD GAS PH 7.46 (7.35-7.45); ARTERIAL BLOOD GAS PO2 74 mm/Hg (80-100); ARTERIAL BLOOD GAS TCO2 28.9 mmol/L (22-28)
--- NOTE | 2017-12-04 16:22 | CARD ---
APPROVED REPORT EKG Measurement Heart [id number] MD [id number] <Conclusion> Normal sinus rhythm Left axis deviation Minimal voltage criteria for LVH, may be normal variant Inferior infarct, age undetermined Anterolateral infarct, age undetermined Abnormal ECG
[2017-12-04] MEDS: Azithromycin 500 MG in Sodium Chloride 0.9% 250 ML IVPB SCH (21:33)
[2017-12-05] MEDS: Levothyroxine 75 MCG TAB PO SCH (06:53)
[2017-12-05] MEDS: Insulin Lispro (humaLOG) 100 Units/ml Inj SC SCH ×4 (06:53→22:58)
[2017-12-05] MEDS: Albuterol-Ipratrop 3 mg / 0.5 (3 ml) UD INH SCH ×4 (07:48→19:46)
--- NOTE | 2017-12-05 09:15 | CP.PCM.PN ---
Subjective - Date & Time of Evaluation Date of Evaluation: 12/05/17 Time of Evaluation: 09:14 - Subjective Subjective: SOB IMPROVING NO CHEST PAIN Objective - Vital Signs/Intake and Output Vital Signs (last 24 hours): Temp Pulse Resp BP Pulse Ox 97.4 F L 57 L 18 117/69 97 12/05/17 07:55 12/05/17 07:55 12/05/17 07:55 12/05/17 07:55 12/05/17 07:55 - Medications Medications: Current Medications Acetaminophen (Tylenol 325mg Tab) 650 mg PO Q6 PRN PRN Reason: Pain, moderate (4-7) Last Admin: 12/05/17 07:12 Dose: 650 mg Albuterol/Ipratropium (Duoneb 3 Mg/0.5 Mg (3 Ml) Ud) 3 ml INH RQID [facility] Last Admin: 12/05/17 07:48 Dose: 3 ml Albuterol/Ipratropium (Duoneb 3 Mg/0.5 Mg (3 Ml) Ud) 3 ml INH RQ2 PRN PRN Reason: Shortness of Breath Amlodipine Besylate (Norvasc) 5 mg PO DAILY [facility] Last Admin: 12/04/17 08:59 Dose: 5 mg Enoxaparin Sodium (Lovenox) 40 mg SC DAILY [facility] PRN Reason: Protocol Last Admin: 12/04/17 08:58 Dose: 40 mg Guaifenesin (Robitussin) 200 mg PO Q6 PRN PRN Reason: Cough Last Admin: 12/04/17 09:05 Dose: 200 mg Ceftriaxone Sodium 1 gm/ (Sodium Chloride) 100 mls @ 100 mls/hr IVPB DAILY [facility] PRN Reason: Protocol Last Admin: 12/04/17 09:30 Dose: 100 mls/hr Azithromycin 500 mg/ Sodium (Chloride) 250 mls @ 250 mls/hr IVPB DAILY [facility] PRN Reason: Protocol Last Admin: 12/04/17 21:33 Dose: 250 mls/hr Insulin Detemir (Levemir) 60 units SC DAILY [facility] Last Admin: 12/04/17 08:58 Dose: 60 units Insulin Human Lispro (Humalog) 0 units SC ACHS [facility] PRN Reason: Protocol Last Admin: 12/05/17 06:53 Dose: 4 units Levothyroxine Sodium (Synthroid) 75 mcg PO DAILY@0630 [facility] Last Admin: 12/05/17 06:53 Dose: 75 mcg Methylprednisolone (Solu-Medrol) 80 mg IV Q8H [facility] Last Admin: 12/05/17 05:01 Dose: 80 mg Sodium Chloride ([place] Nasal [place]) 1 sprays [facility] Q4 PRN PRN Reason: Nasal congestion Last Admin: 12/02/17 08:17 Dose: 1 spr - Labs Labs: 12/02/17 04:30 12/02/17 04:30 PT 12.0 Seconds (9.8-13.1) 12/01/17 12:51 INR 1.1 (0.9-1.2) 12/01/17 12:51 APTT 24.7 Seconds (25.6-37.1) L 12/01/17 12:51 - Constitutional Appears: Chronically Ill - Head Exam Head Exam: ATRAUMATIC, NORMAL INSPECTION, NORMOCEPHALIC - Eye Exam Eye Exam: EOMI, Normal appearance, PERRL Pupil Exam: NORMAL ACCOMODATION, PERRL - ENT Exam ENT Exam: Mucous Membranes Moist, Normal Exam - Neck Exam Neck Exam: Full ROM, Normal Inspection. absent: Lymphadenopathy - Respiratory Exam Respiratory Exam: Rales, NORMAL BREATHING PATTERN - Cardiovascular Exam Cardiovascular Exam: REGULAR RHYTHM, +S1, +S2. absent: Murmur - GI/Abdominal Exam GI & Abdominal Exam: Soft, Normal Bowel Sounds. absent: Tenderness - Rectal Exam Rectal Exam: NORMAL INSPECTION - Extremities Exam Extremities Exam: Full ROM, Normal Capillary Refill, Normal Inspection. absent : Joint Swelling, Pedal Edema - Back Exam Back Exam: NORMAL INSPECTION - Neurological Exam Neurological Exam: Alert, Awake, CN II-XII Intact, Normal Gait, Oriented x3 - Psychiatric Exam Psychiatric exam: Normal Affect, Normal Mood - Skin Skin Exam: Dry, Intact, Normal Color, Warm Assessment and Plan - Assessment and Plan (Free Text) Assessment: ACUTE EXAC OF PULM FIBROSIS URI Plan: CONTINUE PRESENT RX TAPER STEROIDS FROM AM
[2017-12-05] MEDS: Insulin Detemir 100 Units/ml Inj SC SCH (09:37)
[2017-12-05] MEDS: Enoxaparin 40 mg Syringe SC SCH (09:37)
[2017-12-05] MEDS: Azithromycin 500 MG in Sodium Chloride 0.9% 250 ML IVPB SCH (09:40)
[2017-12-05] MEDS: guaiFENesin 200 mg/10 ml Syrup UD PO PRN ×2 (11:49→20:47)
--- NOTE | 2017-12-05 14:10 | CP.PCM.PN ---
Subjective - Date & Time of Evaluation Date of Evaluation: 12/05/17 Time of Evaluation: 14:00 - Subjective Subjective: No fever still with dry cough SOB with exertion denies CP no abd pain Objective - Vital Signs/Intake and Output Vital Signs (last 24 hours): Temp Pulse Resp BP Pulse Ox 97.9 F 93 H 18 105/64 96 12/05/17 12:24 12/05/17 12:24 12/05/17 12:24 12/05/17 12:24 12/05/17 12:24 - Medications Medications: Current Medications Acetaminophen (Tylenol 325mg Tab) 650 mg PO Q6 PRN PRN Reason: Pain, moderate (4-7) Last Admin: 12/05/17 07:12 Dose: 650 mg Albuterol/Ipratropium (Duoneb 3 Mg/0.5 Mg (3 Ml) Ud) 3 ml INH RQID [facility] Last Admin: 12/05/17 11:51 Dose: 3 ml Albuterol/Ipratropium (Duoneb 3 Mg/0.5 Mg (3 Ml) Ud) 3 ml INH RQ2 PRN PRN Reason: Shortness of Breath Amlodipine Besylate (Norvasc) 5 mg PO DAILY [facility] Last Admin: 12/05/17 09:38 Dose: 5 mg Enoxaparin Sodium (Lovenox) 40 mg SC DAILY [facility] PRN Reason: Protocol Last Admin: 12/05/17 09:37 Dose: 40 mg Guaifenesin (Robitussin) 200 mg PO Q6 PRN PRN Reason: Cough Last Admin: 12/05/17 11:49 Dose: 200 mg Ceftriaxone Sodium 1 gm/ (Sodium Chloride) 100 mls @ 100 mls/hr IVPB DAILY [facility] PRN Reason: Protocol Last Admin: 12/05/17 11:41 Dose: 100 mls/hr Azithromycin 500 mg/ Sodium (Chloride) 250 mls @ 250 mls/hr IVPB DAILY [facility] PRN Reason: Protocol Last Admin: 12/05/17 09:40 Dose: 250 mls/hr Insulin Detemir (Levemir) 60 units SC DAILY [facility] Last Admin: 12/05/17 09:37 Dose: 60 units Insulin Human Lispro (Humalog) 0 units SC ACHS [facility] PRN Reason: Protocol Last Admin: 12/05/17 11:41 Dose: 10 units Levothyroxine Sodium (Synthroid) 75 mcg PO DAILY@0630 [facility] Last Admin: 12/05/17 06:53 Dose: 75 mcg Methylprednisolone (Solu-Medrol) 80 mg IV Q8H [facility] Last Admin: 12/05/17 11:42 Dose: 80 mg Sodium Chloride ([place] Nasal [place]) 1 sprays [facility]ILL[facility] Q4 PRN PRN Reason: Nasal congestion Last Admin: 12/02/17 08:17 Dose: 1 spr - Labs Labs: 12/02/17 04:30 12/02/17 04:30 PT 12.0 Seconds (9.8-13.1) 12/01/17 12:51 INR 1.1 (0.9-1.2) 12/01/17 12:51 APTT 24.7 Seconds (25.6-37.1) L 12/01/17 12:51 - Constitutional Appears: Non-toxic, Chronically Ill - Head Exam Head Exam: NORMAL INSPECTION, NORMOCEPHALIC - Eye Exam Eye Exam: EOMI, Normal appearance Pupil Exam: NORMAL ACCOMODATION - ENT Exam ENT Exam: Mucous Membranes Dry, Normal External Ear Exam - Neck Exam Neck Exam: Full ROM. absent: Meningismus - Respiratory Exam Respiratory Exam: Decreased Breath Sounds, + Rales, Rhonchi. absent: Wheezes - Cardiovascular Exam Cardiovascular Exam: REGULAR RHYTHM, +S1, +S2 - GI/Abdominal Exam GI & Abdominal Exam: Soft. absent: Tenderness - Extremities Exam Extremities Exam: Full ROM, Normal Capillary Refill. absent: Calf Tenderness, Pedal Edema - Back Exam Back Exam: Full ROM. absent: CVA tenderness (L), CVA tenderness (R) - Neurological Exam Neurological Exam: Alert, Awake, CN II-XII Intact, Oriented x3 Neuro motor strength exam: Left Upper Extremity: 4, Right Upper Extremity: 4, Left Lower Extremity: 4, Right Lower Extremity: 4 - Psychiatric Exam Psychiatric exam: Flat Affect, Normal Mood - Skin Skin Exam: Dry, Normal Color, Warm Assessment and Plan - Assessment and Plan (Free Text) Assessment: 76 year old female, with past medical history of Pulmonary Fibrosis diagnosed in [facility], hypertension, diabetes and hypothyroidism, hx of chemotx 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 Patient states she has orthopnea, has some wheezing and coarse breath sounds. Patient received bronchodilators in the ER and felt slightly improved. Patient also lives with her brother who is a heavy smoker for many years, although she has not smoked herself. CT showed bronchiectasis as well as pulmonary fibrosis. 1. Acute on Chronic respiratory failure with hypoxia sec to Pulmonary Fibrosis with Bronchiectasis - cont Oxygen at 4 liters NC - pt will need Home Oxygen - Pulm consulted- discussed with Dr Morales- rec starting high dose IV Steroids and abx - taper steroids in am -cont Duonebs RTC - CT of chest : diffused Bronchiectasis and fibrotic changes - ECHO : normal - poor prognosis 2. UTI Klebsiella sensitive to IV Ceftriaxone 3. Hypothyroidism cont Levothyroxine [Synthroid] 75 mcg PO DAILY@0630 check TSH 4. DM type II with hyperglycemia, worsened by steroids -Insulin Detemir [Levemir] 60 units SC DAILY -ACCUCHECKS with coverage - add Glucotrol XL 5 mg 5. HTN cont AmLODIPine [Norvasc] 5 mg PO DAILY 6. DVT proph - Lovenox
[2017-12-05] MEDS: GlipiZIDE 5 mg SR Tab PO SCH (16:57)
[2017-12-06] MEDS: Levothyroxine 75 MCG TAB PO SCH (05:33)
[2017-12-06 06:30] LABS: HEMOGLOBIN 11.7 g/dL (12.0-16.0); MEAN CELL VOLUME 92.1 fl (81.0-99.0); MEAN CORPUSCULAR HEMOGLOBIN 29.5 pg (27.0-31.0); MEAN CORPUSCULAR HGB CONC 32.1 g/dL (33.0-37.0); RBC 3.97 Mil/uL (3.80-5.20); RED CELL DISTRIBUTION WIDTH 14.6 % (11.5-14.5); WHITE BLOOD COUNT 14.5 K/uL (4.8-10.8)
[2017-12-06 06:57] LABS: T4 8.91 ug/dl (5.5-11.0)
[2017-12-06 07:02] LABS: BLOOD UREA NITROGEN 19 mg/dl (7-17); CALCIUM 9.6 mg/dL (8.4-10.2); GFR AFRICAN-AMERICAN > 60; GFR NON-AFRICAN AMERICAN > 60
[2017-12-06] MEDS: Albuterol-Ipratrop 3 mg / 0.5 (3 ml) UD INH SCH ×4 (08:00→19:01)
[2017-12-06] MEDS: Enoxaparin 40 mg Syringe SC SCH (08:47)
[2017-12-06] MEDS: Nasal Spray(Ocean spray) NAS PRN (08:47)
[2017-12-06] MEDS: Insulin Lispro (humaLOG) 100 Units/ml Inj SC SCH ×7 (08:48→21:29)
[2017-12-06] MEDS: Insulin Detemir 100 Units/ml Inj SC SCH (08:49)
[2017-12-06] MEDS: GlipiZIDE 5 mg SR Tab PO SCH (08:49)
[2017-12-06] MEDS: Azithromycin 500 MG in Sodium Chloride 0.9% 250 ML IVPB SCH (10:45)
--- NOTE | 2017-12-06 12:56 | CP.PCM.DIS ---
Provider - Provider Date of Admission: 12/02/17 11:02 Attending physician: Kaylene Dodge DO Primary care physician: none Consults: pulmonary consult Time Spent in preparation of Discharge (in minutes): 20 Hospital Course - Lab Results Lab Results: Micro Results 12/05/17 17:35 Sputum Gram Stain - Final 12/01/17 16:05 Urine,Clean Catch Urine Culture - Final Klebsiella Pneumoniae Ssp Pneu Most Recent Lab Values WBC 14.5 K/uL (4.8-10.8) H D 12/06/17 04:57 RBC 3.97 Mil/uL (3.80-5.20) 12/06/17 04:57 Hgb 11.7 g/dL (12.0-16.0) L 12/06/17 04:57 Hct 36.6 % (34.0-47.0) 12/06/17 04:57 MCV 92.1 fl (81.0-99.0) 12/06/17 04:57 MCH 29.5 pg (27.0-31.0) 12/06/17 04:57 MCHC 32.1 g/dL (33.0-37.0) L 12/06/17 04:57 RDW 14.6 % (11.5-14.5) H 12/06/17 04:57 Plt Count 256 K/uL (130-400) 12/06/17 04:57 MPV 8.8 fl (7.2-11.7) 12/01/17 12:51 Neut % (Auto) 69.0 % (50.0-75.0) 12/01/17 12:51 Lymph % (Auto) 22.2 % (20.0-40.0) 12/01/17 12:51 [place] % (Auto) 5.4 % (0.0-10.0) 12/01/17 12:51 Eos % (Auto) 2.2 % (0.0-4.0) 12/01/17 12:51 Baso % (Auto) 1.2 % (0.0-2.0) 12/01/17 12:51 Neut # 7.3 K/uL (1.8-7.0) H 12/01/17 12:51 Lymph # 2.3 K/uL (1.0-4.3) 12/01/17 12:51 [place] # 0.6 K/uL (0.0-0.8) 12/01/17 12:51 Eos # 0.2 K/uL (0.0-0.7) 12/01/17 12:51 Baso # 0.1 K/uL (0.0-0.2) 12/01/17 12:51 PT 12.0 Seconds (9.8-13.1) 12/01/17 12:51 INR 1.1 (0.9-1.2) 12/01/17 12:51 APTT 24.7 Seconds (25.6-37.1) L 12/01/17 12:51 pCO2 39 mm/Hg (35-45) 12/04/17 12:35 pO2 74 mm/Hg (80-100) L 12/04/17 12:35 HCO3 27.7 mmol/L (21-28) 12/04/17 12:35 ABG pH 7.46 (7.35-7.45) H 12/04/17 12:35 ABG Total CO2 28.9 mmol/L (22-28) H 12/04/17 12:35 ABG O2 Saturation 98.0 % (95-98) 12/04/17 12:35 ABG O2 Content 17.9 ML/dL (15-23) 12/04/17 12:35 ABG Base Excess 3.7 mmol/L (-2.0-3.0) H 12/04/17 12:35 ABG Hemoglobin 13.5 g/dL (11.7-17.4) 12/04/17 12:35 ABG Carboxyhemoglobin 2.6 % (0.5-1.5) H 12/04/17 12:35 POC ABG HHb (Measured) 1.9 % (0.0-5.0) 12/04/17 12:35 ABG Methemoglobin 1.5 % (0.0-3.0) 12/04/17 12:35 ABG O2 Capacity 18.3 mL/dL (16-24) 12/04/17 12:35 Brad Test Yes 12/04/17 12:35 A-a O2 Difference 162.0 mm/Hg 12/04/17 12:35 Hgb O2 Saturation 94.0 % (95.0-98.0) L 12/04/17 12:35 FiO2 40.0 % 12/04/17 12:35 Blood Gas Comments 4l/m nc,rb 12/04/17 12:35 Sodium 141 mmol/l (132-148) 12/06/17 05:04 Potassium 4.4 MMOL/L (3.6-5.0) 12/06/17 05:04 Chloride 102 mmol/L (98-107) 12/06/17 05:04 Carbon Dioxide 31 mmol/L (22-30) H 12/06/17 05:04 Anion Gap 12 (10-20) 12/06/17 05:04 BUN 19 mg/dl (7-17) H 12/06/17 05:04 Creatinine 0.5 mg/dl (0.7-1.2) L 12/06/17 05:04 Est GFR ( Amer) > 60 12/06/17 05:04 Est GFR (Non-Af Amer) > 60 12/06/17 05:04 POC Glucose (mg/dL) 200 mg/dL (65-110) H 12/06/17 05:52 Random Glucose 246 mg/dL (65-105) H 12/06/17 05:04 Calcium 9.6 mg/dL (8.4-10.2) 12/06/17 05:04 Total Bilirubin 0.8 mg/dl (0.2-1.3) 12/01/17 12:51 AST 33 U/L (14-36) 12/01/17 12:51 ALT 22 U/L (9-52) 12/01/17 12:51 Alkaline Phosphatase 114 U/L (38-126) 12/01/17 12:51 Troponin I < 0.0120 ng/mL (0.00-0.120) 12/04/17 08:19 NT-Pro-B Natriuret Pep 272 pg/ml (0-900) 12/01/17 12:51 Total Protein 9.3 G/DL (6.3-8.2) H 12/01/17 12:51 Albumin 4.0 g/dL (3.5-5.0) 12/01/17 12:51 Globulin 5.3 gm/dL (2.2-3.9) H 12/01/17 12:51 Albumin/Globulin Ratio 0.8 (1.0-2.1) L 12/01/17 12:51 Procalcitonin < 0.05 NG/ML (0.19-0.49) L 12/01/17 20:17 Thyroxine (T4) 8.91 ug/dl (5.5-11.0) 12/06/17 05:04 TSH 3rd Generation 0.24 mIU/ML (0.46-4.68) L 12/06/17 05:04 Urine Color Yellow (YELLOW) 12/01/17 13:15 Urine Clarity Cloudy (Clear) 12/01/17 13:15 Urine pH 5.0 (5.0-8.0) 12/01/17 13:15 Ur Specific [place] 1.011 (1.003-1.030) 12/01/17 13:15 Urine Protein Negative mg/dL (NEGATIVE) 12/01/17 13:15 Urine Glucose (UA) Neg mg/dL (Normal) 12/01/17 13:15 Urine Ketones Negative mg/dL (NEGATIVE) 12/01/17 13:15 Urine Blood Small (NEGATIVE) 12/01/17 13:15 Urine Nitrate Negative (NEGATIVE) 12/01/17 13:15 Urine Bilirubin Negative (NEGATIVE) 12/01/17 13:15 Urine Urobilinogen 0.2-1.0 mg/dL (0.2-1.0) 12/01/17 13:15 Ur Leukocyte Esterase Large [place]/uL (Negative) 12/01/17 13:15 Urine RBC (Auto) 3 /hpf (0-3) 12/01/17 13:15 Urine Microscopic WBC 82 /hpf (0-5) H 12/01/17 13:15 Ur Squamous Epith Cells 1 /hpf (0-5) 12/01/17 13:15 Urine Bacteria Many (<OCC) H 12/01/17 13:15 - Hospital Course Hospital Course: 76 year old female, with past medical history of Pulmonary Fibrosis diagnosed in [facility], hypertension, diabetes and hypothyroidism, hx of chemotx 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 Patient stated she has orthopnea,wheezing and coarse breath sounds. Patient received bronchodilators in the ER and felt slightly improved. Patient also lives with her brother who is a heavy smoker for many years, although she has not smoked herself. CT showed bronchiectasis as well as pulmonary fibrosis.During hospital stay she was started on high dose steroids and IV Rocephin and Zithromax , placed on 5 L O2 vi anC due to hypoxemia and pulmonary was consulted . Her urine cx also was reported positive for E. Coli sensitive to rocephin . Clinically she showed improvement, sitting comfortably in chair with no respiratory distress while on 5 L O2 via NC. discussed with pulmonary . will discharge patient on prednisone 40 mg po daily tappered over 3 weeks, home Oxygen, duonebs and Levaquine PO . Patient may follow up with Dr. Morales as outpatient During this hospitaliziation her accuchecs noted to be very highmost likely because of steroid use. Will increase her Glucotrol to 10 mg po BID and continue lantus 60 mg SQ daily Follow up with CFH or PMD 1. Acute on Chronic respiratory failure with hypoxia sec to Pulmonary Fibrosis with Bronchiectasis CT of chest : diffused Bronchiectasis and fibrotic changes treated with high dose IV methylprednisolone, duonebs, O2 via Nc and rocephin and zithromax IV pulmonary consulted improved will d/c home on home oxygen , prednisone 40 mg po daily tappered over 3 weeks and levaquine Continue oxygen at home 2. UTI Sec to Klebsiella sensitive to IV Ceftriaxone Will d/c on Levaquine 3. Hypothyroidism on Levothyroxine [Synthroid] 75 mcg PO DAILY@0630 TSH low will decrease synthroid to 50 Mcg daily 4. DM type II with hyperglycemia, worsened by steroids increase Glucotrol to 10 mg bid continue Lantus 60 units 5. HTN cont AmLODIPine [Norvasc] 5 mg PO DAILY controlled Discharge Exam - Head Exam Head Exam: ATRAUMATIC, NORMAL INSPECTION, NORMOCEPHALIC - Eye Exam Eye Exam: EOMI, PERRL Pupil Exam: NORMAL ACCOMODATION - ENT Exam ENT Exam: Mucous Membranes Moist, Normal Exam - Neck Exam Neck exam: Full Rom, Normal Inspection - Respiratory Exam Respiratory Exam: Rhonchi, NORMAL BREATHING PATTERN. absent: Accessory Muscle Use, Prolonged Expiratory Phase, Wheezes, Respiratory Distress - Cardiovascular Exam Cardiovascular Exam: REGULAR RHYTHM, RRR, +S1, +S2. absent: JVD - GI/Abdominal Exam GI & Abdominal Exam: Normal Bowel Sounds, Soft. absent: Distended, Guarding, Rebound, Tenderness - Rectal Exam Rectal Exam: Deferred - Extremities Exam Extremities exam: normal capillary refill, normal inspection, pedal pulses present - Back Exam Back exam: NORMAL INSPECTION - Neurological Exam Neurological exam: Alert, CN II-XII Intact, Oriented x3, Reflexes Normal - Psychiatric Exam Psychiatric exam: Normal Affect, Normal Mood - Skin Skin Exam: Dry, Intact, Normal Color, Warm Discharge Plan - Discharge Medications Prescriptions: GlipiZIDE [Glipizide] 10 mg PO BID #60 tab guaiFENesin [Robitussin] 200 mg PO Q6 PRN #20 udc PRN Reason: Cough Levofloxacin [Levaquin] 750 mg PO DAILY #7 tablet Levothyroxine [Synthroid] 50 mcg PO DAILY #30 tab predniSONE [Prednisone] 40 mg PO DAILY #42 tab - Follow Up Plan Condition: IMPROVED Disposition: HOME/ ROUTINE Patient education suggested?: Yes Instructions: Pulmonary Fibrosis (DC) Referrals: Demarco Morales MD [Staff Provider] -
--- NOTE | 2017-12-06 12:59 | CP.PCM.PN ---
Subjective - Date & Time of Evaluation Date of Evaluation: 12/06/17 Time of Evaluation: 12:59 - Subjective Subjective: FEELS BETTER NO CHEST PAINS/SOB LUNGS-FAIR AERATION HEART-S1S2 ABD-BENIGN IMP-PULMONARY FIBROSIS PLAN-NO FURTHER PULMONARY INTERVENTION FOR NOW OK TO D/C ON PREDNISONE 40 MG OD AND TAPER OVER 3 WEEKS Objective - Vital Signs/Intake and Output Vital Signs (last 24 hours): Temp Pulse Resp BP Pulse Ox 97.5 F L 78 18 107/59 L 100 12/06/17 12:16 12/06/17 12:16 12/06/17 12:16 12/06/17 12:16 12/06/17 12:16 Intake and Output: 12/06/17 12/06/17 06:59 18:59 Intake Total 100 Balance 100 - Medications Medications: Current Medications Acetaminophen (Tylenol 325mg Tab) 650 mg PO Q6 PRN PRN Reason: Pain, moderate (4-7) Last Admin: 12/06/17 06:37 Dose: 650 mg Albuterol/Ipratropium (Duoneb 3 Mg/0.5 Mg (3 Ml) Ud) 3 ml INH RQID ARIANA Last Admin: 12/06/17 11:46 Dose: 3 ml Albuterol/Ipratropium (Duoneb 3 Mg/0.5 Mg (3 Ml) Ud) 3 ml INH RQ2 PRN PRN Reason: Shortness of Breath Amlodipine Besylate (Norvasc) 5 mg PO DAILY [facility] Last Admin: 12/06/17 08:54 Dose: 5 mg Enoxaparin Sodium (Lovenox) 40 mg SC DAILY ARIANA PRN Reason: Protocol Last Admin: 12/06/17 08:47 Dose: 40 mg Glipizide (Glucotrol Xl) 5 mg PO BRK [facility] Last Admin: 12/06/17 08:49 Dose: 5 mg Guaifenesin (Robitussin) 200 mg PO Q6 PRN PRN Reason: Cough Last Admin: 12/05/17 20:47 Dose: 200 mg Ceftriaxone Sodium 1 gm/ (Sodium Chloride) 100 mls @ 100 mls/hr IVPB DAILY ARIANA PRN Reason: Protocol Last Admin: 12/06/17 08:42 Dose: 100 mls/hr Azithromycin 500 mg/ Sodium (Chloride) 250 mls @ 250 mls/hr IVPB DAILY ARIANA PRN Reason: Protocol Last Admin: 12/06/17 10:45 Dose: 250 mls/hr Insulin Detemir (Levemir) 60 units SC DAILY [facility] Last Admin: 12/06/17 08:49 Dose: 60 units Insulin Human Lispro (Humalog) 0 units SC ACHS [facility] PRN Reason: Protocol Last Admin: 12/06/17 12:41 Dose: 8 units Insulin Human Lispro (Humalog) 8 units SC TIDAC [facility] Last Admin: 12/06/17 12:40 Dose: 8 units Levothyroxine Sodium (Synthroid) 75 mcg PO DAILY@0630 [facility] Last Admin: 12/06/17 05:33 Dose: 75 mcg Methylprednisolone (Solu-Medrol) 80 mg IV Q8H [facility] Last Admin: 12/06/17 12:00 Dose: 80 mg Sodium Chloride (Shubuta Nasal [place]) 1 sprays DILLON Q4 PRN PRN Reason: Nasal congestion Last Admin: 12/06/17 08:47 Dose: 1 spr - Labs Labs: 12/06/17 04:57 12/06/17 05:04 PT 12.0 Seconds (9.8-13.1) 12/01/17 12:51 INR 1.1 (0.9-1.2) 12/01/17 12:51 APTT 24.7 Seconds (25.6-37.1) L 12/01/17 12:51
[2017-12-07 00:23] VITALS: BP 113/61; PULSE 67; RESP 16; TEMP 98; O2SAT 95
== END 2017-12-07 00:30 | disposition home or self-care (01) | DRG 189 ==
LOC: H.ER 12:06 → H.ERHOLD 14:49 → H.TEL 16:50 → OBSVTOIN 12-02 11:02
PROVIDERS: ADMIT Student in an Organized Health Care Education/Training Program; ATTEND Student in an Organized Health Care Education/Training Program
DX: J96.21 Acute and chronic respiratory failure with hypoxia (principal); E11.65 Type 2 diabetes mellitus with hyperglycemia; J84.10 Pulmonary fibrosis, unspecified; N39.0 Urinary tract infection, site not specified; B96.1 Klebsiella pneumoniae [K. pneumoniae] as the cause of diseases classified elsewhere; J06.9 Acute upper respiratory infection, unspecified; E03.9 Hypothyroidism, unspecified; I10 Essential (primary) hypertension; Z77.22 Contact with and (suspected) exposure to environmental tobacco smoke (acute) (chronic); Z99.81 Dependence on supplemental oxygen; Z85.72 Personal history of non-Hodgkin lymphomas; Z92.21 Personal history of antineoplastic chemotherapy; Z95.5 Presence of coronary angioplasty implant and graft; Z79.4 Long term (current) use of insulin

== ENCOUNTER 2018-01-10 08:44 | Observation (INO) | payer MEDICAID, SELFPAY ==
[2018-01-10 08:47] VITALS: BMI 21.9
--- NOTE | 2018-01-10 09:02 | ED PDOC ---
HPI: Chest Pain Time Seen by Provider: 01/10/18 08:49 Chief Complaint (Nursing): Chest Pain History Per: Patient Onset/Duration Of Symptoms: Days (1) Current Symptoms Are (Timing): Intermittent Episodes Severity: Mild Pain Scale Rating Of: 2 Quality: Aching Associated Symptoms: Dyspnea Additional Complaint(s): Left sided chest pain radiating to left shoulder assoc with SOB since last night. No cough or fever. Past Medical History Vital Signs: Last Vital Signs Temp 98.1 F 01/10/18 08:47 Pulse 76 01/10/18 09:12 Resp 18 01/10/18 08:47 BP 126/70 01/10/18 09:12 Pulse Ox 96 01/10/18 09:01 - Medical History PMH: Bronchitis, CAD, Depression, Diabetes, Gall Bladder Disease ( cholecystectomy), HTN, Hypothyroidism Denies: Chronic Kidney Disease - Surgical History Surgical History: Cholecystectomy, Coronary Stent - Family History Family History: States: Unknown Family Hx - Home Medications Home Medications: Ambulatory Orders Medication Instructions Recorded Albuterol HFA [Ventolin HFA 90 2 puff NEB Q6 PRN 02/05/17 mcg/actuation (8 g)] Insulin Glargine, Recombina 60 units SC DAILY 02/05/17 [Lantus] amLODIPine [Norvasc] 5 mg PO DAILY 02/05/17 Insulin Glulisine [Apidra] 12 unit SQ DAILY 12/01/17 GlipiZIDE [Glipizide] 10 mg PO BID #60 tab 12/06/17 Levothyroxine [Synthroid] 50 mcg PO DAILY #30 tab 12/06/17 predniSONE [Prednisone] 40 mg PO DAILY #42 tab 12/06/17 - Allergies Allergies/Adverse Reactions: Allergies Allergy/AdvReac Type Severity Reaction Status Date / Time Penicillins Allergy SWELLING Verified 01/10/18 08:49 Review of Systems ROS Statement: Except As Marked, All Systems Reviewed And Found Negative Cardiovascular: Positive for: Chest Pain Respiratory: Positive for: Shortness of Breath Physical Exam - Reviewed Nursing Documentation Reviewed: Yes Vital Signs Reviewed: Yes - Physical Exam Appears: Positive for: Non-toxic, No Acute Distress Head Exam: Positive for: ATRAUMATIC, NORMAL INSPECTION, NORMOCEPHALIC Skin: Positive for: Normal Color, Warm, DRY Eye Exam: Positive for: EOMI, Normal appearance, PERRL ENT: Positive for: Normal ENT Inspection Neck: Positive for: Normal, Painless ROM Cardiovascular/Chest: Positive for: Regular Rate, Rhythm Respiratory: Positive for: CNT, Normal Breath Sounds Gastrointestinal/Abdominal: Positive for: Normal Exam, Bowel Sounds, Soft Back: Positive for: Normal Inspection Extremity: Positive for: Normal ROM Neurologic/Psych: Positive for: Alert, Oriented - Laboratory Results Result Diagrams: 01/10/18 09:09 01/10/18 09:09 - ECG O2 Sat by Pulse Oximetry: 96 Disposition - Clinical Impression Clinical Impression: Chest pain - Patient ED Disposition Is Patient to be Admitted: Yes - Disposition Disposition Time: 11:55 Condition: FAIR Forms: [employer] (Amharic) - Pt Status Changed To: Hospital Disposition Of: Observation - POA Present On Arrival: None
[2018-01-10 09:17] LABS: BASO # 0.1 K/uL (0.0-0.2); BASO % 0.9 % (0.0-2.0); EOS # 0.4 K/uL (0.0-0.7); EOS % 3.8 % (0.0-4.0); HEMOGLOBIN 13.6 g/dL (12.0-16.0); LYMPH # 2.8 K/uL (1.0-4.3); LYMPH % 26.6 % (20.0-40.0); MEAN CELL VOLUME 91.9 fl (81.0-99.0); MEAN CORPUSCULAR HEMOGLOBIN 31.1 pg (27.0-31.0); MEAN CORPUSCULAR HGB CONC 33.8 g/dL (33.0-37.0); MONO # 0.7 K/uL (0.0-0.8); MONO % 6.6 % (0.0-10.0); NEUT # 6.5 K/uL (1.8-7.0); NEUT % 62.1 % (50.0-75.0); RBC 4.38 Mil/uL (3.80-5.20); RED CELL DISTRIBUTION WIDTH 14.9 % (11.5-14.5); WHITE BLOOD COUNT 10.5 K/uL (4.8-10.8)
--- NOTE | 2018-01-10 09:25 | RAD ---
HISTORY: COMPARISON: 12/01/2017. TECHNIQUE: Chest PA and lateral FINDINGS: LINES AND TUBES: None. LUNG AND PLEURA: There are persistent low lung volumes and diffuse interstitial thickening in the right lung with bronchiectasis and interstitial thickening in the left mid lung and lower lobe with bronchiectasis. HEART AND MEDIASTINUM: The heart is not enlarged. The hilar and mediastinal contours are within normal limits. SKELETAL STRUCTURES: The bony structures are within normal limits for the patient's age. VISUALIZED UPPER ABDOMEN: Normal. OTHER FINDINGS: None. IMPRESSION: Interstitial fibrosis, worse in the right lung.
[2018-01-10 09:28] LABS: GFR AFRICAN-AMERICAN > 60; GFR NON-AFRICAN AMERICAN > 60
[2018-01-10 09:34] LABS: ALB/GLOB RATIO 0.9 (1.0-2.1); ALBUMIN 4.1 g/dL (3.5-5.0); ALT/SGPT 26 U/L (9-52); AST/SGOT 40 U/L (14-36); BLOOD UREA NITROGEN 18 mg/dl (7-17)
[2018-01-10 09:44] LABS: CALCIUM 9.4 mg/dL (8.4-10.2)
--- NOTE | 2018-01-10 12:37 | CP.PCM.HP ---
History of Present Illness - History of Present Illness History of Present Illness: CC: shortness of breath HPI: 77 year old female, past medical history Pulmonary Fibrosis diagnosed in [facility], hypertension, diabetes and hypothyroidism, hx of chemo 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 Morales as outpatient, nor did she fill any discharge medications. Patient presents today with a one day history of pressure like moderate chest pain radiating to her left shoulder, associated with mild dyspnea and some nondescript GI discomfort. Patient vitals are stable , troponin neg x1, no new changes on EKG. ROS: Per HPI, all other systems reviewed and neg PMH: pulmonary fibrosis, HTN, DM, Hypothryoid, hx chemo for lymphoma PSH: denies FH: denies SH: denies tobacco, ETOH, IVDU NKDA 01/10/18 01/10/18 01/10/18 15:01 09:09 09:09 WBC 10.5 RBC 4.38 Hgb 13.6 Hct 40.2 MCV 91.9 MCH 31.1 H MCHC 33.8 RDW 14.9 H Plt Count 296 MPV 8.0 Neut % (Auto) 62.1 Lymph % (Auto) 26.6 [place] % (Auto) 6.6 Eos % (Auto) 3.8 Baso % (Auto) 0.9 Neut # (Auto) 6.5 Lymph # (Auto) 2.8 [place] # (Auto) 0.7 Eos # (Auto) 0.4 Baso # (Auto) 0.1 Sodium 142 Potassium 4.7 Chloride 100 Carbon Dioxide 28 Anion Gap 19 BUN 18 H Creatinine 0.5 L Est GFR ( Amer) > 60 Est GFR (Non-Af Amer) > 60 POC Glucose (mg/dL) Random Glucose 174 H Calcium 9.4 Total Bilirubin 1.0 AST 40 H D ALT 26 Alkaline Phosphatase 98 Troponin I < 0.0120 < 0.0120 Total Protein 8.9 H Albumin 4.1 Globulin 4.8 H Albumin/Globulin Ratio 0.9 L 01/10/18 09:05 WBC RBC Hgb Hct MCV MCH MCHC RDW Plt Count MPV Neut % (Auto) Lymph % (Auto) [place] % (Auto) Eos % (Auto) Baso % (Auto) Neut # (Auto) Lymph # (Auto) [place] # (Auto) Eos # (Auto) Baso # (Auto) Sodium Potassium Chloride Carbon Dioxide Anion Gap BUN Creatinine Est GFR ( Amer) Est GFR (Non-Af Amer) POC Glucose (mg/dL) 164 H Random Glucose Calcium Total Bilirubin AST ALT Alkaline Phosphatase Troponin I Total Protein Albumin Globulin Albumin/Globulin Ratio 77 year old female, past medical history Pulmonary Fibrosis diagnosed in [facility], hypertension, diabetes and hypothyroidism, hx of chemo 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 Morales as outpatient, nor did she fill any discharge medications. Patient presents today with a one day history of pressure like moderate chest pain radiating to her left shoulder, associated with mild dyspnea and some nondescript GI discomfort. Patient vitals are stable , troponin neg x1, no new changes on EKG. Chest pain Hx Pulmonary Fibrosis HTN Hypothyroid Chest pain Trop neg x2, No acute changes on EKG Nitroglycerin 0.4 mg SL Q5M PRN Carvedilol 6.25 mg PO Q12 [id number] mg PO DAILY Hx Pulmonary Fibrosis on home O2, saturating at baseline cont Albuterol HTN cont AmLODIPine 5 mg PO DAILY controlled Hypothyroid cont Levothyroxine 75 mcg PO DAILY TSH low will decrease synthroid to 50 Mcg daily DM type II cont Glucotrol to 10 mg bid continue Levemir 22 units VTE lovenox and SCDs Present on Admission - Present on Admission Any Indicators Present on Admission: No Past Patient History - Past Medical History & Family History Past Medical History?: Yes - Past Social History Smoking Status: Never Smoked - CARDIAC Hx Hypertension: Yes - PULMONARY Hx Bronchitis: Yes - NEUROLOGICAL Hx Neurological Disorder: Yes Hx Dizziness: Yes (Vertigo) - HEENT Hx HEENT Problems: No Other/Comment: pt wears glasses - RENAL Hx Chronic Kidney Disease: No - ENDOCRINE/METABOLIC Hx Hypothyroidism: Yes - HEMATOLOGICAL/ONCOLOGICAL Hx Blood Disorders: Yes - INTEGUMENTARY Hx Dermatological Problems: No - MUSCULOSKELETAL/RHEUMATOLOGICAL Hx Musculoskeletal Disorders: No Hx Falls: No - GASTROINTESTINAL Hx Gall Bladder Disease: Yes (cholecystectomy) - GENITOURINARY/GYNECOLOGICAL Hx Genitourinary Disorders: No - PSYCHIATRIC Hx Depression: Yes - SURGICAL HISTORY Hx Cholecystectomy: Yes Hx Coronary Stent: Yes - ANESTHESIA Hx Anesthesia: Yes Hx Anesthesia Reactions: No Meds Allergies/Adverse Reactions: Allergies Allergy/AdvReac Type Severity Reaction Status Date / Time Penicillins Allergy SWELLING Verified 02/23/18 08:49 Results - Vital Signs Recent Vital Signs: Last Vital Signs Temp 98.1 F 01/10/18 08:47 Pulse 76 01/10/18 09:12 Resp 18 01/10/18 08:47 BP 126/70 01/10/18 09:12 Pulse Ox 96 01/10/18 11:55 - Labs Result Diagrams: 01/10/18 09:09 01/10/18 09:09 Labs: Laboratory Results - last 24 hr 01/10/18 01/10/18 01/10/18 09:05 09:09 09:09 WBC 10.5 RBC 4.38 Hgb 13.6 Hct 40.2 MCV 91.9 MCH 31.1 H MCHC 33.8 RDW 14.9 H Plt Count 296 MPV 8.0 Neut % (Auto) 62.1 Lymph % (Auto) 26.6 [place] % (Auto) 6.6 Eos % (Auto) 3.8 Baso % (Auto) 0.9 Neut # (Auto) 6.5 Lymph # (Auto) 2.8 [place] # (Auto) 0.7 Eos # (Auto) 0.4 Baso # (Auto) 0.1 Sodium 142 Potassium 4.7 Chloride 100 Carbon Dioxide 28 Anion Gap 19 BUN 18 H Creatinine 0.5 L Est GFR ( Amer) > 60 Est GFR (Non-Af Amer) > 60 POC Glucose (mg/dL) 164 H Random Glucose 174 H Calcium 9.4 Total Bilirubin 1.0 AST 40 H D ALT 26 Alkaline Phosphatase 98 Troponin I < 0.0120 Total Protein 8.9 H Albumin 4.1 Globulin 4.8 H Albumin/Globulin Ratio 0.9 L
[2018-01-10] MEDS ORDERED: Albuterol HFA 90 mcg/actuation (8 g) INH PRN (12:58)
[2018-01-10] MEDS: guaiFENesin 100 mg/5 ml Syrup UD PO PRN (20:43)
[2018-01-10] MEDS ORDERED: Dextrose 50% SYRINGE Inj (50 ml) IVP ONE (22:18)
--- NOTE | 2018-01-10 22:54 | CARD ---
APPROVED REPORT EKG Measurement Heart [id number] <Conclusion> Normal sinus rhythm Inferior infarct, age undetermined Cannot rule out Anterior infarct, age undetermined Abnormal ECG
[2018-01-11] MEDS: guaiFENesin 100 mg/5 ml Syrup UD PO PRN ×2 (00:37→08:43)
[2018-01-11 06:26] LABS: HEMOGLOBIN 12.6 g/dL (12.0-16.0); MEAN CELL VOLUME 92.3 fl (81.0-99.0); MEAN CORPUSCULAR HEMOGLOBIN 30.6 pg (27.0-31.0); MEAN CORPUSCULAR HGB CONC 33.2 g/dL (33.0-37.0); RBC 4.13 Mil/uL (3.80-5.20); RED CELL DISTRIBUTION WIDTH 14.6 % (11.5-14.5)
[2018-01-11] MEDS ORDERED: Levothyroxine 50 MCG TAB PO SCH (06:30)
[2018-01-11 06:58] LABS: BLOOD UREA NITROGEN 20 mg/dl (7-17); CALCIUM 9.4 mg/dL (8.4-10.2); GFR AFRICAN-AMERICAN > 60; GFR NON-AFRICAN AMERICAN > 60
[2018-01-11] MEDS ORDERED: Enoxaparin 40 mg Syringe SC SCH (09:00)
[2018-01-11] MEDS ORDERED: Insulin Detemir 100 Units/ml Inj SC SCH (09:00)
--- NOTE | 2018-01-11 09:43 | CP.PCM.DIS ---
Provider - Provider Date of Admission: 01/10/18 11:54 Attending physician: Kaylene Dodge DO Time Spent in preparation of Discharge (in minutes): 30 Diagnosis - Discharge Diagnosis (1) Musculoskeletal chest pain Status: Acute Hospital Course - Lab Results Lab Results: Most Recent Lab Values WBC 11.0 K/uL (4.8-10.8) H 01/11/18 05:25 RBC 4.13 Mil/uL (3.80-5.20) 01/11/18 05:25 Hgb 12.6 g/dL (12.0-16.0) 01/11/18 05:25 Hct 38.1 % (34.0-47.0) 01/11/18 05:25 MCV 92.3 fl (81.0-99.0) 01/11/18 05:25 MCH 30.6 pg (27.0-31.0) 01/11/18 05:25 MCHC 33.2 g/dL (33.0-37.0) 01/11/18 05:25 RDW 14.6 % (11.5-14.5) H 01/11/18 05:25 Plt Count 279 K/uL (130-400) 01/11/18 05:25 MPV 8.0 fl (7.2-11.7) 01/10/18 09:09 Neut % (Auto) 62.1 % (50.0-75.0) 01/10/18 09:09 Lymph % (Auto) 26.6 % (20.0-40.0) 01/10/18 09:09 [place] % (Auto) 6.6 % (0.0-10.0) 01/10/18 09:09 Eos % (Auto) 3.8 % (0.0-4.0) 01/10/18 09:09 Baso % (Auto) 0.9 % (0.0-2.0) 01/10/18 09:09 Neut # (Auto) 6.5 K/uL (1.8-7.0) 01/10/18 09:09 Lymph # (Auto) 2.8 K/uL (1.0-4.3) 01/10/18 09:09 [place] # (Auto) 0.7 K/uL (0.0-0.8) 01/10/18 09:09 Eos # (Auto) 0.4 K/uL (0.0-0.7) 01/10/18 09:09 Baso # (Auto) 0.1 K/uL (0.0-0.2) 01/10/18 09:09 Sodium 142 mmol/l (132-148) 01/11/18 05:25 Potassium 4.2 MMOL/L (3.6-5.0) 01/11/18 05:25 Chloride 100 mmol/L (98-107) 01/11/18 05:25 Carbon Dioxide 29 mmol/L (22-30) 01/11/18 05:25 Anion Gap 17 (10-20) 01/11/18 05:25 BUN 20 mg/dl (7-17) H 01/11/18 05:25 Creatinine 0.6 mg/dl (0.7-1.2) L 01/11/18 05:25 Est GFR ( Amer) > 60 01/11/18 05:25 Est GFR (Non-Af Amer) > 60 01/11/18 05:25 POC Glucose (mg/dL) 171 mg/dL (65-110) H 01/11/18 06:45 Random Glucose 73 mg/dL (65-105) 01/11/18 05:25 Calcium 9.4 mg/dL (8.4-10.2) 01/11/18 05:25 Total Bilirubin 1.0 mg/dl (0.2-1.3) 01/10/18 09:09 AST 40 U/L (14-36) H D 01/10/18 09:09 ALT 26 U/L (9-52) 01/10/18 09:09 Alkaline Phosphatase 98 U/L (38-126) 01/10/18 09:09 Troponin I < 0.0120 ng/mL (0.00-0.120) 01/10/18 20:39 Total Protein 8.9 G/DL (6.3-8.2) H 01/10/18 09:09 Albumin 4.1 g/dL (3.5-5.0) 01/10/18 09:09 Globulin 4.8 gm/dL (2.2-3.9) H 01/10/18 09:09 Albumin/Globulin Ratio 0.9 (1.0-2.1) L 01/10/18 09:09 - Hospital Course Hospital Course: 77 year old female, past medical history Pulmonary Fibrosis diagnosed in [facility], hypertension, diabetes and hypothyroidism, hx of chemo 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 Morales as outpatient, nor did she fill any discharge medications. Patient presents today with a one day history of pressure like moderate chest pain radiating to her left shoulder, associated with mild dyspnea and some nondescript GI discomfort. Patient vitals are stable , troponin neg x1, no new changes on EKG. HOSPITAL COURSE BY PROBLEM: Chest pain Hx Pulmonary Fibrosis HTN Hypothyroid Chest pain TROPONINS neg x3, NO acute EKG changes or changes from prior. Musculoskeletal in origin from chronic cough. stable for dc home with follow up [facility]. Hx Pulmonary Fibrosis on home O2, saturating at baseline cont Albuterol HTN cont AmLODIPine 5 mg PO DAILY controlled Hypothyroid cont Levothyroxine 75 mcg PO DAILY TSH low will decrease synthroid to 50 Mcg daily DM type II cont Glucotrol to 10 mg bid continue Levemir 22 units VTE lovenox and SCDs Discharge Exam - Head Exam Head Exam: ATRAUMATIC, NORMAL INSPECTION, NORMOCEPHALIC - Eye Exam Eye Exam: EOMI, Normal appearance, PERRL Pupil Exam: NORMAL ACCOMODATION - ENT Exam ENT Exam: Mucous Membranes Moist, Normal Oropharynx - Respiratory Exam Respiratory Exam: Clear to PA & Lateral, NORMAL BREATHING PATTERN Additional comments: CHEST TENDERNESS TO PALPATION - Cardiovascular Exam Cardiovascular Exam: RRR, Rubs, +S1, +S2 - GI/Abdominal Exam GI & Abdominal Exam: Normal Bowel Sounds, Soft. absent: Mass, Tenderness - Extremities Exam Extremities exam: normal capillary refill, pedal pulses present - Back Exam Back exam: absent: CVA tenderness (L), CVA tenderness (R) - Neurological Exam Neurological exam: Alert, Oriented x3 - Psychiatric Exam Psychiatric exam: Normal Affect, Normal Mood - Skin Skin Exam: Dry, Warm Discharge Plan - Discharge Medications Prescriptions: Albuterol HFA [Ventolin HFA 90 mcg/actuation (8 g)] 2 puff NEB Q6 PRN #1 inhaler PRN Reason: SOB GlipiZIDE [Glucotrol] 10 mg PO BID #60 tab Insulin Glargine, Recombina [Lantus] 22 units SC DAILY #100 unit Levothyroxine [Synthroid] 50 mcg PO DAILY #30 tab - Follow Up Plan Condition: FAIR Disposition: HOME/ ROUTINE Additional Instructions: patient to follow up at [facility] IN ONE WEEK. Referrals: [facility] [Provider Group]
[2018-01-11 16:02] VITALS: BP 107/68; PULSE 82; RESP 18; TEMP 97.8; O2SAT 96
--- NOTE | 2018-01-11 19:16 | CARD ---
APPROVED REPORT EKG Measurement Heart [id number] <Conclusion> Normal sinus rhythm Inferior infarct, age undetermined Possible Anterior infarct, age undetermined Abnormal ECG
== END 2018-01-11 18:10 | disposition home or self-care (01) ==
LOC: H.ER 08:44 → H.ERHOLD 11:54 → H.TEL 16:04
PROVIDERS: ADMIT Student in an Organized Health Care Education/Training Program; ATTEND Student in an Organized Health Care Education/Training Program
DX: R07.89 Other chest pain (principal); E11.9 Type 2 diabetes mellitus without complications; E03.9 Hypothyroidism, unspecified; I10 Essential (primary) hypertension; I25.10 Atherosclerotic heart disease of native coronary artery without angina pectoris; J84.10 Pulmonary fibrosis, unspecified; Z85.72 Personal history of non-Hodgkin lymphomas; Z92.21 Personal history of antineoplastic chemotherapy; Z95.5 Presence of coronary angioplasty implant and graft; Z99.81 Dependence on supplemental oxygen; Z79.4 Long term (current) use of insulin; Z88.0 Allergy status to penicillin
CPT/HCPCS: 36415; 71046; 80048; 80053; 82948; 84484; 85025; 85027; 93005; 99285; G0378; J1650